=== PATIENT | female | born 1970 | race Caucasian/White ===

== ENCOUNTER → 2020-06-07 15:47 | Outpatient (BNVA) | payer OTHER, SELFPAY | PROVIDERS: PCP Internal Medicine; Visit Provider Advanced Practice Midwife ==

== ENCOUNTER → 2020-06-12 09:44 | Outpatient (BNVA) | payer OTHER, SELFPAY | PROVIDERS: PCP Internal Medicine; Visit Provider Advanced Practice Midwife | DX: Z13.89 Encounter for screening for other disorder (principal) | CPT/HCPCS: 58301 ==

== ENCOUNTER 2020-08-17 13:22 | Outpatient (REF) | payer OTHER, SELFPAY ==
--- NOTE | ~2020-08-17 | XR_ITS ---
EXAMINATION: XR KNEE, RIGHT CLINICAL INFORMATION: Pain right knee COMPARISON: None TECHNIQUE: Four views of the right knee. FINDINGS: There is mild narrowing medial knee joint compartment. Moderate suprapatellar effusion is present. Hoffa's fat pad appears normal. There is no fracture, dislocation, or destructive process. No erosive change or chondrocalcinosis. XR/XR knee RT 4V IMPRESSION: Moderate suprapatellar effusion. Mild narrowing medial knee joint compartment.
== END 2020-08-17 13:23 | disposition home or self-care (01) ==
LOC: HO.HMGCX 13:22
PROVIDERS: PCP Internal Medicine; Visit Provider Hospitalist
DX: M25.561 Pain in right knee (principal)
CPT/HCPCS: 73564

== ENCOUNTER 2021-10-06 15:09 | Emergency (ER) | payer OTHER, SELFPAY ==
[2021-10-06 15:16] VITALS: BP 173/80; PULSE 89; RESP 20; TEMP 36.8; O2SAT 97; BMI 43.4
--- NOTE | 2021-10-06 15:43 | ED_ITS ---
HPI - Dental/Oral General Chief complaint: Dental/Oral Stated complaint: tooth pain for 2 weeks Time Seen by Provider: 10/06/21 15:38 Source: patient Mode of arrival: ambulatory Limitations: no limitations History of Present Illness HPI Narrative: 51 y/o female with left lower dental pain for the last 1 week. She saw her dentist 3 days ago and started on oral antibiotics, she knows she has to get the tooth removed and a root canal. She reports no improvement in the pain and it may be worsening. She is taking 100 mg ibuprofen, Tylenol and previously prescribed amoxicillin with no improvement. She continues to smoke, although she is trying to come back because she notices not good for her. She denies any fever or chills. She is eating and drinking normally. She is here for something for the pain. MD Complaint: tooth pain Location: Tooth # (21) Onset (ago): week(s) (1) Duration: constant Severity: severe Severity scale (1-10): 10 Relieving factors: nothing Exacerbating factors: chewing Context: history of dental caries, trauma (mechanism) and poor dental care Associated symptoms: gum swelling Treatment prior to arrival: oral analgesic Related Data Home Medications Medication Instructions Recorded Confirmed flu vac qv 2019(18yr up)rc(PF) ml IM 06/02/20 08/17/20 levonorgestrel 20 mcg/24 hours (7 INTRAUTERINE 06/07/20 08/17/20 yrs) 52 mg intrauterine device (Mirena) Previous Rx's Medication Instructions Recorded naproxen 500 mg tablet 500 mg PO BID PRN #30 tab 02/09/20 fluoxetine 20 mg capsule 40 mg PO DAILY #180 cap 06/02/20 omeprazole 20 mg capsule,delayed 20 mg PO DAILY #90 cap 07/21/20 release prednisone 20 mg tablet 20 mg PO DAILY 9 Days #18 tab 08/18/20 clindamycin HCl 300 mg capsule 300 mg PO Q6H 7 Days #28 cap 10/06/21 tramadol 50 mg tablet 50 mg PO Q6H PRN #10 tab 10/06/21 Allergies Allergy/AdvReac Type Severity Reaction Status Date / Time No Known Allergies Allergy Verified 08/17/20 12:52 [No Known Allergies*] Review of Systems Review of Systems: Constitutional: No Fever, No Chills ENT/Mouth: No sore throat, No Rhinorrhea, No Swallowing Difficulty, +Toothpain, +facical pain Eyes: No Eye Pain, No Swelling, No Redness Cardiovascular: No Chest Pain, No SOB Respiratory: No Cough, No Sputum Gastrointestinal: No Nausea, No Vomiting, No Diarrhea, No abdominal Pain Skin: No Skin Lesions, No rash Neuro: No Weakness, No Numbness, No Dizziness, + Headache Psych: + Anxiety/Panic Heme/Lymph: No Bruising, No Lymphadenopathy PMFSH Past Medical History Medical History Annual physical exam Depression Overweight Surgical History No pertinent past surgical history Family History Family History Father No problems noted. Mother No problems noted. Paternal Grandmother Stomach cancer Social History Social History Alcohol intake: never Cigarette Packs Per Day: 0.5 Cigarettes Per Day: 10 Advance Directives: No Advance Directives Information Provided: No Sexual orientation: Straight/Heterosexual Physical Exam Vital Signs: Vital Signs: Last Vital Signs Temp 98.3 F 10/06/21 15:16 Pulse 89 10/06/21 15:16 Resp 20 10/06/21 15:16 BP 173/80 H 10/06/21 15:16 Pulse Ox 97 10/06/21 15:16 BMI result Body Mass Index 43.4 Appearance: Alert. Oriented X3. No acute distress. HEENT: mild left lower mandibular swelling. 2nd bicuspid severely decayed, enam el cracked, exposed dentin with gingival swelling and tenderness. multiple broken and decayed teeth. CVS: Normal heart rate and rhythm. Pulses normal. Respiratory: No respiratory distress. Speaks in complete sentences. Skin: Skin warm and dry. Normal skin color. Normal skin turgor. No rashes. Extremities: normal inspection x4. Neuro: Oriented X 3. No motor deficit. No sensory deficit. Course Course Course Narrative: 51-year-old female presents to the ER with left lower tooth pain for the last 1 week. She has been on a oral amoxicillin for the last 3 days per her dentist with worsening pain and swelling. On examination she has a broken, decayed tooth with evidence of dental abscess. No area of fluctuance amenable to drainage today. Will plan to up titrate her antibiotics to clindamycin for broader coverage and prescribed tramadol for severe pain. She is going to call her dentist on Friday for close follow-up. Advised to quit smoking. She is stable for discharge home. Critical Care Time Critical Care Time Critical Care Time: No Discharge Plan Discharge Clinical Impression: Dental abscess Patient Disposition: Home, Self-Care Instructions: Dental Abscess (ED) Additional Instructions: Stop taking the previously prescribed amoxicillin. Start taking the new antibiotic, clindamycin as directed. Complete the entire course. Recommend taking [id number] probiotics while your on this antibiotic. Continue taking at the previously prescribed ibuprofen and Tylenol. Take the prescribed tramadol as needed for severe pain. Do not drive after taking this medication, it can make you drowsy. Follow-up with your dentist as soon as possible. If you develop new or worsening symptoms call 911 or come back to the ER for further evaluation. Prescriptions: New clindamycin HCl 300 mg capsule 300 mg PO Q6H 7 Days Qty: 28 0RF tramadol 50 mg tablet 50 mg PO Q6H PRN (Reason: severe pain (scale score 7-10)) Qty: 10 0RF No Action omeprazole 20 mg capsule,delayed release(DR/EC) 20 mg PO DAILY Qty: 90 3RF prednisone 20 mg tablet 20 mg PO DAILY 9 Days Qty: 18 0RF Rx Instructions: 3 tabs/60mg for 3 days 2 tabs/40mg for 3 days 1 tab/20mg for 3 days naproxen 500 mg tablet 500 mg PO BID PRN (Reason: pain) Qty: 30 0RF Flublok Quad [id number] (PF) 180 mcg (45 mcg x 4)/0.5 mL syringe IM 0RF fluoxetine 20 mg capsule 40 mg PO DAILY Qty: 180 3RF Mirena 20 mcg/24 hours (6 yrs) 52 mg intrauterine device intrauterine 0RF
== END 2021-10-06 16:07 | disposition home or self-care (01) ==
PROVIDERS: Emergency Provider Student in an Organized Health Care Education/Training Program; PCP Internal Medicine
DX: K04.7 Periapical abscess without sinus (principal); K08.89 Other specified disorders of teeth and supporting structures; F17.210 Nicotine dependence, cigarettes, uncomplicated; Z71.6 Tobacco abuse counseling; Z79.899 Other long term (current) drug therapy
CPT/HCPCS: 99282

== ENCOUNTER 2023-04-26 09:42 | Outpatient (AMB) | payer OTHER, SELFPAY ==
--- NOTE | 2023-04-26 10:05 | AM.OFFWIN_ITS ---
Intake Vital Signs 04/26/23 10:06 Height 5 ft 1 in BP 150/92 H Blood Pressure Location Lt brachial Position Sitting Pulse 78 Pulse Source Pulse Oximeter Temp 97.5 F Temp Source Oral Pulse Oximetry (%) 98 Oxygen Delivery Method Room Air Intake Visit Reasons: EP Sore throat,cough(son+COVID)[id number] Intake Note: pt is here for c/o sore throat, son was covid positive Patient Tobacco Use Status: Never used Tobacco Allergies No Known Allergies [No Known Allergies*] Allergy (Verified 04/26/23 10:06) Medication List - Last Reconciled 04/26/23 by Germania Maxwell PA-C famotidine (Pepcid) 20 mg PO DAILY 5 days fluoxetine 40 mg (2 x 20 mg) PO DAILY hydroxyzine HCl 25mg-50mg orally 4 times a day PRN; levonorgestrel (Mirena) intrauterine omeprazole 20 mg PO DAILY Do you need a note to return to daycare/school/sports/work: Yes HPI HPI Comments History of Present Illness Details She has covid symptoms She said symptoms started 2 days ago Her son was + Smooth She teste at home + yesterday She has congestion, ST ashiness + cough with some phlegm Foamy sputum No fever She has been on omeprazole and ran out recently and looking for refill [facility] Medical History Depression Surgical History No pertinent past surgical history Family History Father No problems noted. Mother No problems noted. Paternal Grandmother Stomach cancer Social History Alcohol intake: never Patient Tobacco Use Status: Never used Tobacco Cigarette Packs Per Day: 0.5 Cigarettes Per Day: 10 Sexual orientation: Straight/Heterosexual Female Reproductive History Menstrual Age of Menarche: 15 Review of Systems Const Reports as per HPI, Reports body aches and Reports fatigue ENT Reports no additional complaints Card Denies chest pain, Denies rapid heart rate and Denies dyspnea Resp Reports cough and Denies dyspnea GI Denies abdominal pain and Reports heartburn (baseline; looking for refill) Endo Reports fatigue Physical Exam Vital Signs: Last Vital Signs Temp 97.5 F 04/26/23 10:06 Pulse 78 04/26/23 10:06 BP 150/92 H 04/26/23 10:06 Pulse Ox 98 04/26/23 10:06 Oxygen Delivery Method Room Air 04/26/23 10:06 General: Non-toxic, NAD. Speaking full sentences. Skin: Warm dry throughout Eye: EOMI HENT: Airway patent. Uvula midline. No pharyngeal erythema or edema. No [employer]CH[employer]IC. Bilateral canals clear. TM non-erythematous, non-bulging. No TM perforation or hemotympanum noted. Respiratory: CTA bilaterally. No wheezes, rales or rhonchi Cardiac: RRR. No murmur MSK: Full ROM extremities. Neurology: A/O No aphasia or facial droop. Gait without abnormality Psych: Good mood and affect Results AMB Rapid Strep AMB Rapid Strep Negative Last Edit by Phillip Pavon CMA on 04/26/23 10 :33 Assessment & Plan Assessment & Plan (1) COVID: Code(s): U07.1 - COVID-19 Plan Patient seen and evaluated. She had faint positive line at home BINAXNOW COVID obtained Will call pt with results as she wanted it confirmed Discussed isolate x 5 days, then mask wearing around others for 5 days Symptomatic management, fluids rest Omeprazole refil given ER if worse Patient gave verbal understanding and had no additional questions or concerns at time of discharge All questions answered Orders: Orders AMB Rapid Strep Screen Today Z13.9 - Encounter for screening, unspecified BinaxNOW Covid-19 Ag Today U07.1 - COVID-19 Coding Level of Care Code Est Pt Level 3 (28323) Diagnoses COVID U07.1
[2023-04-26 10:06] VITALS: BP 150/92; PULSE 78; TEMP 36.4; O2SAT 98
== END 2023-04-26 12:20 | disposition home or self-care (01) ==
PROVIDERS: PCP Internal Medicine; Visit Provider Physician Assistant
DX: U07.1 COVID-19 (principal)
CPT/HCPCS: 87880; 99051; 99213

== ENCOUNTER 2023-04-26 10:47 | Outpatient (REF) | payer OTHER, SELFPAY ==
[2023-04-26 11:22] LABS: Binax Internal Control QC Valid; Binax Now Covid-19 Ag Positive (Negative); Binax Performed by: HO.TORG
== END 2023-04-26 10:48 | disposition home or self-care (01) ==
LOC: HO.HMGCLDS 10:47
PROVIDERS: PCP Internal Medicine; Visit Provider Physician Assistant
DX: U07.1 COVID-19 (principal)
CPT/HCPCS: 87811

== ENCOUNTER 2024-10-19 15:16 | Emergency (ER) | payer OTHER, SELFPAY ==
--- NOTE | ~2024-10-19 | XR_ITS ---
CLINICAL HISTORY: vomiting, ? bowel obstruction 2 view abdomen Comparison: None provided Findings: Low lung volumes with mild atelectasis. Imaged mediastinum is unremarkable for technique. No free intraperitoneal air by radiographs. No small bowel dilatation of the imaged abdomen. Mild gaseous borderline distention of the hepatic flexure in the right upper quadrant. Featureless bowel measuring 3 cm in the right hemiabdomen favored to be in the large intestine (series 2). Moderate stool burden in the partially imaged abdomen. Mild osteoarthritis of the imaged hips. Degenerative changes include imaged spine (mild) , by frontal radiographs. Phleboliths noted in the pelvis. IMPRESSION: 1. Moderate stool burden. 2. No definite small bowel obstruction by radiographs. Consider CT, if clinically indicated. This document has been electronically signed by: Kris Ugalde MD on 10/19/2024 22:05:43
[2024-10-19 15:19] VITALS: BP 141/84; PULSE 79; RESP 18; TEMP 36.8; O2SAT 99; BMI 40.2
--- NOTE | 2024-10-19 15:23 | ED_ITS ---
HPI - General Adult General Chief complaint: Abdominal Pain Stated complaint: Vomiting/Nausea Time Seen by Provider: 10/19/24 18:12 Source: patient Mode of arrival: ambulatory Limitations: no limitations History of Present Illness ED Provider: Dr. Laurel Valenzuela HPI narrative: 54-year-old female with history of GERD presenting with nausea and vomiting ongoing for the last couple of days. Describes potential diarrhea but no hematochezia or melena. Vomiting has been nonstop to the point where she has been unable to tolerate anything by mouth in the last 24 hours. No reported fever. Denies chest pain or difficulty breathing. No known sick contacts or questionable food intake. Related Data Home Medications ?Medication ?Instructions ?Recorded ?Confirmed levonorgestrel 21 mcg/24 hr (up to intrauterine 06/07/20 04/26/23 8 years) 52 mg intrauterine device (Mirena) Previous Rx's ?Medication ?Instructions ?Recorded famotidine 20 mg tablet (Pepcid) 20 mg PO DAILY 5 days #5 tabs 10/18/21 fluoxetine 20 mg capsule 40 mg (2 x 20 mg) PO DAILY #180 10/18/21 caps hydroxyzine HCl 25 mg tablet See Rx Instructions PO QID PRN 10/18/21 itching #30 tabs omeprazole 20 mg capsule,delayed 20 mg PO DAILY #30 caps 04/30/23 release dicyclomine 20 mg tablet 20 mg PO BID #10 tabs 10/19/24 ondansetron 4 mg disintegrating 4 mg PO Q8H #10 tabs 10/19/24 tablet Allergies Allergy/AdvReac Type Severity Reaction Status Date / Time No Known Allergies Allergy Verified 10/19/24 15:25 [No Known Allergies*] Review of Systems 2 Review of Systems: Yes all other systems are reviewed and are negative [facility] Past Medical History Attestation statement: The following information was validated with the patient. [facility] Narrative: Anxiety, GERD Source: old records reviewed and nursing notes reviewed Medical History Depression Surgical History No pertinent past surgical history Family History Family History Father No problems noted. Mother No problems noted. Paternal Grandmother Stomach cancer Social History Social History Alcohol intake: never Patient Tobacco Use Status: Never used Tobacco Cigarette Packs Per Day: 0.5 Cigarettes Per Day: 10 Advance Directives: No Advance Directives Information Provided: No Do you have a plan to hurt others: No Plan Sexual orientation: Straight/Heterosexual Physical Exam ED Vital Signs: Vital Signs - 24 hr 10/19/24 15:19 10/19/24 18:18 10/19/24 21:06 Temperature 98.3 F 97.8 F 98.4 F Pulse Rate 79 82 77 Respiratory Rate 18 20 20 Blood Pressure 141/84 H 175/66 H 184/86 H Pulse Oximetry 99 98 97 Oxygen Delivery Method Room Air Room Air Room Air BMI result Body Mass Index 40.2 GENERAL: Ill-Appearing, appears uncomfortable. SKIN: Normal skin color for ethnicity, warm, dry, no rashes noted. HEENT: Normocephalic, atraumatic, no stridor, dry mucous membranes, dentition intact, EOMI, PERRLA. NECK: Soft, supple, full ROM, midline structures nontender, no step-offs, no deformities, no lymphadenopathy. CHEST: Heart regular tachycardia, no murmurs, symmetric chest rise and fall. PULMONARY: Clear to auscultation bilaterally, diminished at the bases, no labored breathing, no wheezes/rhales/rhonchi. ABDOMINAL: Soft, nondistended, diffusely tender to palpation without rebound or guarding, hyperactive bowel sounds in all quadrants. : Deferred. MUSCULOSKELETAL: Normal tone, full range of motion, no deformities, no peripheral edema. NEURO: Alert and oriented x3, CN II through XII intact, equal strength and sensation bilateral upper and lower extremities, no focal neurologic deficits. PSYCHIATRIC: Flat affect, fluid speech, good eye contact and appropriate demeanor. Course Course Course Narrative: RME, this is a rapid medical exam performed by Macho Quinn please refer to primary provider for complete H&P- 54-year-old female presents for evaluation of nausea and vomiting since last night. Her son is sick with similar symptoms. Plan for labs, viral testing. Patient medicated with Zofran 4 mg ODT Medications Administered Discontinued Medications Generic Name Dose Route Start Last Admin Trade Name Freq PRN Reason Stop Dose Admin Famotidine 20 mg 10/19/24 20:04 10/19/24 20:21 Famotidine/Pf 20 Mg/2 Ml Vial IVPUSH 10/19/24 20:05 20 mg ONCE ONE Administration Lactated Ringer's 1,000 mls @ 999 mls/hr 10/19/24 19:03 10/19/24 19:20 Lr IV 10/19/24 20:03 999 mls/hr .Q1H1M ONE Administration Metoclopramide HCl 10 mg 10/19/24 20:04 10/19/24 20:21 Metoclopramide Hcl 10 Mg/2 Ml Vial IVPUSH 10/19/24 20:05 10 mg ONCE ONE Administration Ondansetron HCl 4 mg 10/19/24 15:24 10/19/24 15:27 Ondansetron Odt 4 Mg Tab.Rapdis TRANSLINGU 10/19/24 15:25 4 mg ONCE ONE Administration Ondansetron HCl 4 mg 10/19/24 19:03 10/19/24 19:20 Ondansetron Hcl 4 Mg/2 Ml Vial IVPUSH 10/19/24 19:04 4 mg ONCE ONE Administration Prochlorperazine Edisylate 10 mg 10/19/24 21:04 10/19/24 21:09 Prochlorperazine Edisylate 10 Mg/2 Ml Vial IVPUSH 10/19/24 21:05 10 mg ONCE ONE Administration Medical Decision Making Medical Decision Making MDM Narrative: Patient presents today with a chief complaint of vomiting. Differential diagnosis includes surgical emergency such as obstruction or enteritis, as well as hyperglycemia, acidosis, food or drug ingestion, pancreatitis, CVA, allergic reaction such as anaphylaxis, cannabis hyperemesis syndrome or cyclic vomiting syndrome, among many others. Patient is not showing signs of acute dehydration or hemodynamic instability. They are having associated abdominal pain. Broad-based work-up was initiated based on above history and physical exam. Medicated with Zofran and fluids. 8:05 p.m. patient feeling slightly improved the nausea persists. We will add on Reglan. Her workup thus far has been reassuring. Given both vomiting and diarrhea today I suspect a viral gastroenteritis. She is nontoxic and tolerating oral intake. Anticipate discharge after the 2nd dose of antiemetics. Differential Diagnosis Differential Diagnoses: The differential diagnosis associated with the presentation includes ( See above) Admission/Observation Consideration of admission/observation: Escalation of care including admission/observation considered Lab Data MDM Lab Attestation statement: I reviewed the patient's lab results. 10/19/24 15:37 10/19/24 15:37 Labs: Lab Results 10/19/24 Range/Units 15:37 WBC 12.4 H (4.8-10.8) X10*3/uL RBC 5.13 (4.20-5.50) X10*6/uL Hgb 15.9 (12.0-16.0) g/dl Hct 44.6 (37.0-47.0) % MCV 86.9 (80.0-98.0) fL MCH 31.0 (27.0-33.0) pg MCHC 35.7 H (31.0-35.0) g/dl RDW 13.1 (11.0-16.0) % Plt Count 446 H (160-400) X10*3/uL MPV 8.8 L (9.4-12.3) fL Immature Gran % (Auto) 0.4 (0.0-0.4) % Neut % (Auto) 72.7 (45-73) % Lymph % (Auto) 20.1 (20-40) % Gladwin % (Auto) 5.2 (2-11) % Eos % (Auto) 1.0 (0-4) % Baso % (Auto) 0.6 (0-2) % Lymph # (Auto) 2.5 (1.2-4.9) X10*3/uL Gladwin # (Auto) 0.7 (0.1-1.2) X10*3/uL Eos # (Auto) 0.1 (0.0-0.4) X10*3/uL Baso # (Auto) 0.1 (0.0-0.2) X10*3/uL Abs Immat Gran (auto) 0.05 H (0.00-0.03) X10*3/uL Absolute Neuts (auto) 9.0 H (2.0-8.3) x10*3/uL Absolute Nucleated RBC 0.000 (0.0-0.012) X10*3/uL Nucleated RBC % (auto) 0.0 (0.0-0.2) /100WBC Sodium 142 (135-145) mmol/L Potassium 4.2 (3.3-5.1) mmol/L Chloride 106 (96-108) mmol/L Carbon Dioxide 25 (22-29) mmol/L Anion Gap 15 (12-20) BUN 8 L (9-16) mg/dL Creatinine 0.73 (0.5-1.4) mg/dL Estim Creat Clear Calc 99.5 Estimated GFR > 60 Random Glucose 134 H (60-115) mg/dL Calcium 10.0 (8.4-10.2) mg/dL Total Bilirubin 0.4 (0.0-1.0) mg/dL AST 25 (5-31) U/L ALT 25 (0-31) U/L Alkaline Phosphatase 97 (39-117) U/L Total Protein 7.8 (6.5-8.0) g/dL Albumin 4.5 (3.5-5.0) g/dL Lipase 18 (8-78) U/L Influenza Type A (PCR) NEGATIVE (Negative) Influenza Type B (PCR) NEGATIVE (Negative) RSV RNA Qual (PCR) NEGATIVE (Negative) SARS-CoV-2 RNA (RT-PCR) NEGATIVE (Negative) Radiology Impression Discussion of test interpretation with radiology: I have reviewed the radiologist's reading. Radiologist Impression: 2 view abdomen Comparison: None provided Findings: Low lung volumes with mild atelectasis. Imaged mediastinum is unremarkable for technique. No free intraperitoneal air by radiographs. No small bowel dilatation of the imaged abdomen. Mild gaseous borderline distention of the hepatic flexure in the right upper quadrant. Featureless bowel measuring 3 cm in the right hemiabdomen favored to be in the large intestine (series 2). Moderate stool burden in the partially imaged abdomen. Mild osteoarthritis of the imaged hips. Degenerative changes include imaged spine (mild) , by frontal radiographs. Phleboliths noted in the pelvis. IMPRESSION: 1. Moderate stool burden. 2. No definite small bowel obstruction by radiographs. Consider CT, if clinically indicated. This document has been electronically signed by: Kris Ugalde MD on 10/19/2024 22:05:43 Chronic Conditions Patient?s care impacted by: Other (GERD) Discharge Plan Discharge Clinical Impression: Viral gastroenteritis Patient Disposition: Home, Self-Care Instructions: Acute Nausea and Vomiting (DC) Prescriptions: New ondansetron 4 mg tablet,disintegrating 4 mg PO Q8H Qty: 10 0RF dicyclomine 20 mg tablet 20 mg PO BID Qty: 10 0RF No Action fluoxetine 20 mg capsule 40 mg PO DAILY Qty: 180 3RF omeprazole 20 mg capsule,delayed release(DR/EC) 20 mg PO DAILY Qty: 30 0RF hydroxyzine HCl 25 mg tablet See Rx Instructions PO QID PRN (Reason: itching) Qty: 30 0RF Rx Instructions: 25mg-50mg orally 4 times a day PRN; famotidine [Pepcid] 20 mg tablet 20 mg PO DAILY 5 Days Qty: 5 0RF Mirena 20 mcg/24 hours (6 yrs) 52 mg intrauterine device intrauterine Print Language: Indonesian
[2024-10-19] MEDS: Ondansetron ODT 4 MG TAB.RAPDIS TRANSLINGU (15:27)
[2024-10-19 15:42] LABS: MANUAL DIFF FLAG NO
[2024-10-19 15:43] LABS: Basophils Absolute Auto 0.1 X10*3/uL (0.0-0.2); Basophils Percent Auto 0.6 % (0-2); Eosinophils Absolute Auto 0.1 X10*3/uL (0.0-0.4); Hematocrit 44.6 % (37.0-47.0); Hemoglobin 15.9 g/dl (12.0-16.0); Imm Gran Abs Auto 0.05 X10*3/uL (0.00-0.03); Imm Gran Pct Auto 0.4 % (0.0-0.4); Lymphocytes Absolute Auto 2.5 X10*3/uL (1.2-4.9); Lymphocytes Percent Auto 20.1 % (20-40); Mean Corpuscular HGB Conc 35.7 g/dl (31.0-35.0); Mean Corpuscular Volume 86.9 fL (80.0-98.0); Mean Platelet Volume 8.8 fL (9.4-12.3); Monocytes Absolute Auto 0.7 X10*3/uL (0.1-1.2); Monocytes Percent Auto 5.2 % (2-11); Neutrophils Percent Auto 72.7 % (45-73); Platelet Count 446 X10*3/uL (160-400); Red Blood Count 5.13 X10*6/uL (4.20-5.50); Red Cell Distribution Width 13.1 % (11.0-16.0); White Blood Count 12.4 X10*3/uL (4.8-10.8)
[2024-10-19 15:58] LABS: Alanine Aminotransferase 25 U/L (0-31); Albumin Level 4.5 g/dL (3.5-5.0); Alkaline Phosphatase 97 U/L (39-117); Anion Gap 15 (12-20); Aspartate Amino Transferase 25 U/L (5-31); Bilirubin Total 0.4 mg/dL (0.0-1.0); Blood Urea Nitrogen 8 mg/dL (9-16); Carbon Dioxide 25 mmol/L (22-29); Chloride 106 mmol/L (96-108); Creatinine Clr Calc Pharmacy 99.5; Estimated Glomerular Filt Rate > 60; Glucose Random 134 mg/dL (60-115); Lipase 18 U/L (8-78); Potassium 4.2 mmol/L (3.3-5.1); Sodium 142 mmol/L (135-145); Total Protein 7.8 g/dL (6.5-8.0)
[2024-10-19 16:26] LABS: Influenza A PCR NEGATIVE (Negative); Influenza B PCR NEGATIVE (Negative); Resp Syncy Virus RNA Qual PCR NEGATIVE (Negative); SARS COV2 PCR INHOUSE NEGATIVE (Negative)
[2024-10-19 18:18] VITALS: BP 175/66; PULSE 82; RESP 20; TEMP 36.6; O2SAT 98
--- OUTSIDE RECORDS SUMMARY | 2024-10-19 18:50 | XMS_ITS | Clinical Summary ---
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 06/27/2022 Active Social History Tobacco Use Types Packs/Day Years Used Date Smoking Tobacco: Every Day Cigarettes 0.3 0.5 Passive Smoke Exposure: Never Smokeless Tobacco: Never Tobacco Cessation:Ready to Q uit: Not Asked; Counseling Given: Not Answered Alcohol Use Standard Drinks/Week Comments Never 0 (1 standard drink = 0.6 oz pur e alcohol) Comments Unknown Sex and Gender Information Value Date Recorded Sex Assigned at Female 03/04/2022 10:26 AM EDT Legal Sex Female 10:26 AM EDT Gender Identity Female 03/04/2022 10:26 AM EDT Sexual Orientation Straight 03/04/2022 10 :26 AM EDT Last Filed Vital Signs Vital Sign Reading Time Taken Comments Blood Pressure 148/86 09/19/2022 9:49 AM EDT Pulse 92 09/19/2022 9:49 AM EDT Temperature - - Respiratory Rate - - Oxygen Saturation - - Inhaled Oxygen Concentration - - Weight - - Height - - Body Mass Index - - Plan of Treatment Health Maintenance Due Date Last Done Comments CT Colonography 1972 Colonoscopy 1972 Colorectal Cancer Screening 1972 Depression Screening 1972 FIT DNA/Cologuard 1972 FIT 1972 FOBT 1972 HIV Screening 1972 SDOH Screening 1972 Sigmoidoscopy 1972 Disability Screening 1972 Alcohol/Substance Use Screening 1984 Family Planning (PISQ) 1987 Hepatitis C Screening 1990 Hepatitis B Vaccines (1 of 3 - 19+ 3-dose series) 1991 Pneumococcal Vaccine: 50+ Years (1 of 2 - PCV) 1991 Pap Smear 1993 Cervical Cancer Screening 2002 HPV/Cotest 2002 Mammogram 2012 DTaP/Tdap/Td Vaccines (1 - Tdap) 07/13/2017 07/12/2017 Zoster Vaccines (1 of 2) 2022 Dental Oral Exam 12/18/2022 06/19/2022 Dental Prophylaxis 01/26/2023 07/25/2022 Dental X-Ray: Bitewings 06/20/2023 06/19/2022 Tobacco Screening 09/20/2023 09/19/2022 COVID-19 Vaccine (4 - 2023-2 5 season) 2024 05/25/2021, 09/27/2020, 08/30/2020 Influenza Vaccine (Season Ended) 2025 02/02/2020, 02/13/2018, 02/05/2017 Dental X-Ray: Full Mouth 06/20/2025 06/19/2022 RSV Patients and Patients Aged 60 years or older (1 - 1-dose 75+ series) 2047 HIB Vaccines Aged Out No longer eligi ble based on patient's age to complete this topic HPV Vaccines Aged Out No longer eligi ble based on patient's age to complete this topic Hepatitis A Vaccines Aged Out No long er eligible based on patient's age to complete this topic IPV Vaccines Aged Out No longer eligi ble based on patient's age to complete this topic Meningococcal B Vaccine Aged Out No l onger eligible based on patient's age to complete this topic Meningococcal Vaccine Aged Out No zee steve eligible based on patient's age to complete this topic RSV under 20 months Aged Out No longe r eligible based on patient's age to complete this topic Rotavirus Vaccines Aged Out No longer eligible based on patient's age to complete this topic Procedures Procedure Name Priority Date/Time Associated Diagnosis Comments PROPHYLAXIS - ADULT Routine 07/25/2022 1 1:00 AM EDT Dental calculus INTRAORAL - COMPLETE SERIES OF RADIOGRAPHIC IMAGES Routine 06/19/2022 10:30 AM EST PERIODIC ORAL EVALUATION - ESTABLISHED PATIENT Routine 06/19/2022 10:30 AM EST from Last 3 Months or Most Recently Relevant to Health Maintenance Insurance [facility] MEDICAID STAND ADULT
[2024-10-19] MEDS: Lactated Ringers 1,000 ML 999 ML IV (19:20)
[2024-10-19] MEDS: ondansetron HCL 4 MG/2 ML VIAL IVPUSH (19:20)
--- NOTE | 2024-10-19 19:31 | PC.NURSE ---
this rn assumed care of pt, pt resting in stretcher, reports nausea at this time. 22g placed in left hand, medicated per mar, iv fluids administering
[2024-10-19] MEDS: Famotidine/PF 20 MG/2 ML VIAL IVPUSH (20:21)
[2024-10-19] MEDS: Metoclopramide HCl 10 MG/2 ML VIAL IVPUSH (20:21)
[2024-10-19 21:06] VITALS: BP 184/86; PULSE 77; RESP 20; TEMP 36.9; O2SAT 97
[2024-10-19] MEDS: Prochlorperazine Edisylate 10 MG/2 ML VIAL IVPUSH (21:09)
[2024-10-19 22:36] VITALS: BP 165/71; PULSE 70; RESP 16; TEMP 36.9; O2SAT 98
[2024-10-19 22:39] VITALS: BP 165/71; PULSE 70; RESP 16; TEMP 36.9; O2SAT 98
== END 2024-10-19 22:40 | disposition home or self-care (01) ==
PROVIDERS: Physician Assistant; Emergency Provider Emergency Medicine
DX: A08.4 Viral intestinal infection, unspecified (principal); R11.2 Nausea with vomiting, unspecified; Z79.899 Other long term (current) drug therapy; Z03.818 Encounter for observation for suspected exposure to other biological agents ruled out
CPT/HCPCS: 0241U; 74022; 80053; 83690; 85025; 96361; 96374; 96375; 99284; J0737; J1308; J2405; J2765; J7120

== ENCOUNTER → 2024-10-19 21:04 | Outpatient (BNV) | payer OTHER, SELFPAY | PROVIDERS: Emergency Provider Emergency Medicine; Visit Provider Radiology Neuroradiology | DX: R14.0 Abdominal distension (gaseous) (principal) | CPT/HCPCS: 74022 ==

== ENCOUNTER 2025-02-23 07:51 | Emergency (ER) | payer OTHER, SELFPAY ==
[2025-02-23 07:56] VITALS: BP 186/100; BP 202/104; PULSE 75; PULSE 79; RESP 20; TEMP 37.1; O2SAT 100; O2SAT 99; BMI 36.3
--- NOTE | 2025-02-23 08:41 | ED_ITS ---
HPI - General Adult General Chief complaint: Abdominal Pain Stated complaint: ABD PAIN FOR WEEKS,BP 220/108 Time Seen by Provider: 02/23/25 08:41 Source: patient Mode of arrival: ambulatory Limitations: no limitations History of Present Illness ED Provider: Leatha Murray PA-C HPI narrative: This is a 54yo female who presents to the ED for abdominal pain with associated nausea and diarrhea. Patient has a history of GERD, depression, and marijuana use. She states that this episode started last week and dissipated some over the weekend such that she was able to resume activities, however, the pain has started back up again prompting this visit. The patient indicates the pain is epigastric and states the nausea is severe, but she has not vomited as there is nothing left in my stomach . Endorses having about 20oz of non-carbonated nicki adri for hydration recently. She reports that she has been evaluated for these episodes in the ED multiple times at various points over the last few years with no definitive diagnosis. Received medication on previous visits that did help. She has not identified any associated triggers or confounding circumstances. Does not think this is food related and denies sick contacts. Endorses regular cannabis consumption via vaping/smoking, states that the cannabis does help with nausea. Denies pain in the chest, arms, or jaw. Denies shortness of breath, but endorses cough. Onset (ago): day(s) Location: abdomen Pain Consistency: constant Associated symptoms: nausea/vomiting and other (diarrhea) Related Data Home Medications ?Medication ?Instructions ?Recorded ?Confirmed levonorgestrel (Mirena) intrauterine 06/07/20 Previous Rx's ?Medication ?Instructions ?Recorded famotidine 20 mg tablet (Pepcid) 20 mg PO DAILY 5 days #5 tabs 10/18/21 fluoxetine 20 mg capsule 40 mg (2 x 20 mg) PO DAILY # 180 10/18/21 caps hydroxyzine HCl 25 mg tablet See Rx Instructions PO QI D PRN 10/18/21 itching #30 tabs omeprazole 20 mg capsule,delayed 20 mg PO DAILY #30 ca ps 04/30/23 release dicyclomine 20 mg tablet 20 mg PO BID #10 tabs ondansetron 4 mg disintegrating 4 mg PO Q8H #10 tabs 0 10/19/24 tablet omeprazole 40 mg capsule,delayed 40 mg PO DAILY #7 cap s 02/23/25 release ondansetron 4 mg disintegrating 4 mg PO Q8H 3 days #9 tabs 02/23/25 tablet Allergies Allergy/AdvReac Type Severity Reaction Status Date / Time No Known Allergies (No Known Allergy Verified 02/23/25 08:01 Allergies*) Review of Systems 2 Constitutional: Constitutional: Reports as per HPI Eyes: Eyes: Reports as per HPI ENT: Reports as per HPI Cardiovascular: Cardiovascular: Reports as per HPI Respiratory: Respiratory: Reports as per HPI Gastrointestinal: Gastrointestinal: Reports as per HPI Genitourinary: Genitourinary: Reports as per HPI Musculoskeletal: Musculoskeletal: Reports as per HPI Integumentary/Breasts: Skin/Breast: Reports as per HPI Neurologic: Reports as per HPI Psychiatric: Psychiatric: Reports as per HPI Endocrine: Endocrine: Reports as per HPI Hematologic/Lymphatic: Hematologic/Lymphatic: Reports as per HPI Allergic/Immunologic: Allergic/Immunologic: Reports as per HPI [facility] Past Medical History Attestation statement: The following information was validated with the patient. Source: old records reviewed and nursing notes reviewed Medical History Overweight Annual physical exam Depression Surgical History No pertinent past surgical history Family History Family History Father No problems noted. Mother No problems noted. Paternal Grandmother Stomach cancer Social History Social History Alcohol intake: never Patient Tobacco Use Status: Never used Tobacco Cigarette Packs Per Day: 0.5 Cigarettes Per Day: 10 Advance Directives: No Advance Directives Information Provided: No Sexual orientation: Straight/Heterosexual Physical Exam ED Vital Signs: Vital Signs - 24 hr 02/23/25 07:56 02/23/25 09:32 Temperature 98.7 F Pulse Rate 79 Respiratory Rate 20 16 Blood Pressure 202/104 H Pulse Oximetry 100 Oxygen Delivery Method Room Air BMI result Body Mass Index 36.3 Const General: cooperative, alert and awake Nutritional Appearance: obese Orientation/consciousness: patient oriented x3 HENMT Head: Yes normocephalic and Yes atraumatic Ears: hearing grossly normal bilaterally and external ears normal General nose exam: Normal external nose present, no nasal discharge noted and no epistaxis Face and sinus: Yes normal facial exam, No abrasion and No laceration Mouth: Normal oral and palatal mucosa present, no drooling and no muffled voice Eyes General: appearance normal, both eyes and all related structures Periorbital: periorbital findings normal Eyelids: Yes eyelids normal Conjunctivae: conjunctivae normal Pupils: Equal, round and reactive pupils present EOM: EOMs intact bilaterally Neck Neck: Yes normal visual inspection and Yes full ROM Resp Effort & Inspection: normal respiratory effort and able to speak in complete sentences GI Palpation (GI): Soft to palpation, not firm, nontender, no guarding and not rigid Neuro General: patient oriented x3 Cranial nerves: Yes Equal, round and reactive pupils present Cognition (Neuro): normal cognition Extrem General: Yes normal to inspection, Yes full ROM and Yes capillary refill normal Psych Appearance: grossly normal Mental Status: mental status grossly normal Affect: normal affect Attitude: cooperative Thought process: Normal thought process present Thought content: Normal thought content present Insight: Good insight present (Psych) Medications Administered Discontinued Medications Generic Name Dose Route Start Last Admin Trade Name Valentínq PRN Reason Stop Dose Admin Morphine Sulfate 4 mg 02/23/25 08:42 02/23/25 09:32 Morphine Sulfate 4 Mg/Ml Cartridge IVPUSH 02/23/25 08:43 4 mg ONCE ONE Administration Protocol Ondansetron HCl 4 mg 02/23/25 08:42 02/23/25 09:32 Ondansetron Hcl 4 Mg/2 Ml Vial IVPUSH 02/23/25 08:43 4 mg ONCE ONE Administration Pantoprazole Sodium 40 mg 02/23/25 08:42 02/23/25 09:32 Pantoprazole Sodium 40 Mg/10 Ml Vial IVPUSH 02/23/25 08:43 40 mg ONCE ONE Administration Medical Decision Making Medical Decision Making MDM Narrative: Patient is a 54 year old assigned female at with a history of GERD and marijuana use presenting to the emergency department today with abdominal pain, nausea, and diarrhea. Patient's physical exam was as noted in the physical exam portion of this note and unremarkable. Patient's blood work was unremarkable. Patient's EKG was unremarkable. Patient's clinical presentation is most consistent with gastroenteritis vs. gastritis vs. CHS I explained my physical exam findings as well as all test results to the patient. I answered all questions asked by the patient. Patient received IV fluids, morphine, protonix, and zofran which, upon re- evaluation, she stated it helped her symptoms significantly. I stressed the importance of the patient taking her medication as directed (either prescribed or as the over the counter packaging recommends). I stressed the importance of the patient following up with her primary care provider and a GI specialist. I stressed the importance of the patient returning to the emergency department immediately if her symptoms were to worsen or if she were to develop any dizziness, shortness of breath, difficulty breathing, chest pain, blurry vision, loss of vision, nausea, vomiting, abdominal pain, fever, chills, back pain, or any other complaints. Patient verbalized agreement and understanding with this treatment plan and discharge. Differential Diagnosis Differential Diagnoses: The differential diagnosis associated with the presentation includes Abdominal pain Gastroenteritis Epigastric pain CHS Gastritis Peptic ulcer disease Admission/Observation Consideration of admission/observation: Escalation of care including admission/observation considered Patient would have been admitted to the hospital had her work up had any findings where hospital admission was appropriate and her clinical presentation warranted hospital admission. Lab Data [facility] Lab Attestation statement: I reviewed the patient's lab results. My interpretation of these results are in the [facility] Rationale portion of this note. 02/23/25 09:25 02/23/25 09:25 Labs: Lab Results 02/23/25 Range/Units 09:25 WBC 9.9 (4.8-10.8) X10*3/uL RBC 4.83 (4.20-5.50) X10*6/uL Hgb 14.8 (12.0-16.0) g/dl Hct 41.6 (37.0-47.0) % MCV 86.1 (80.0-98.0) fL MCH 30.6 (27.0-33.0) pg MCHC 35.6 H (31.0-35.0) g/dl RDW 12.5 (11.0-16.0) % Plt Count 396 (160-400) X10*3/uL MPV 8.9 L (9.4-12.3) fL Immature Gran % (Auto) 0.3 (0.0-0.4) % Neut % (Auto) 76.1 H (45-73) % Lymph % (Auto) 17.5 L (20-40) % [place] % (Auto) 4.9 (2-11) % Eos % (Auto) 0.5 (0-4) % Baso % (Auto) 0.7 (0-2) % Lymph # (Auto) 1.7 (1.2-4.9) X10*3/uL [place] # (Auto) 0.5 (0.1-1.2) X10*3/uL Eos # (Auto) 0.1 (0.0-0.4) X10*3/uL Baso # (Auto) 0.1 (0.0-0.2) X10*3/uL Abs Immat Gran (auto) 0.03 (0.00-0.03) X10*3/uL Absolute Neuts (auto) 7.5 (2.0-8.3) x10*3/uL Absolute Nucleated RBC 0.000 (0.0-0.012) X10*3/uL Nucleated RBC % (auto) 0.0 (0.0-0.2) /100WBC Sodium 136 (135-145) mmol/L Potassium 3.4 (3.3-5.1) mmol/L Chloride 104 (96-108) mmol/L Carbon Dioxide 24 (22-29) mmol/L Anion Gap 11 L (12-20) BUN 5 L (9-16) mg/dL Creatinine 0.60 (0.5-1.4) mg/dL Estim Creat Clear Calc 132.3 Estimated GFR > 60 Random Glucose 135 H (60-115) mg/dL Calcium 9.4 (8.4-10.2) mg/dL Total Bilirubin 0.4 (0.0-1.0) mg/dL AST 24 (5-31) U/L ALT 23 (0-31) U/L Alkaline Phosphatase 96 (39-117) U/L Troponin I High Sens < 2.7 (<3.5-17.0) ng/L Total Protein 7.3 (6.5-8.0) g/dL Albumin 4.2 (3.5-5.0) g/dL Lipase 11 (8-78) U/L Independent Interpretation I performed an independent interpretation of an: EKG Interpretation: I independently interpreted this EKG and am in agreement with the below findings: Vent. Rate: 74 BPM Atrial Rate: 74 BPM P-R Int: 154 ms QRS Dur: 88 ms QT Int: 394 ms P-R-T Axes: 32 2 28 degrees QTcB Int: 437 ms Normal sinus rhythm Minimal voltage criteria for LVH, may be normal variant (R in aVL) When compared with ECG of 24-Feb-2018 14:33, No significant change was found DD/ 0852 Tests considered The following testing was considered but not selected: I considered obtaining a CT scan of the abdomen/pelvis however, the patient's current clinical presentation and work up did not warrant this. Critical Care Time Critical Care Time Critical Care Time: Yes Total Critical Care Time: 34 Attestation: I spent 52 minutes of Critical Care Time with this patient. This does not include time spent on separately reported billable procedures. Discharge Plan Discharge Clinical Impression: Abdominal pain Patient Disposition: Home, Self-Care Instructions: Abdominal Pain (ED) Additional Instructions: Your work up today was reassuring there is no EMERGENT cause for your symptoms. Given your ongoing issues with this - you should follow up with the [facility] GI team. Take your medication as prescribed and please try to abstain from marijuana use as that can sometimes be the cause of these symptoms. Without being abstinent from it for 90 days, there is no way to definitively rule that out. IF you are prescribed home medications and/or you are taking over the counter medications at home - it is very important you continue to do so as prescribed / directed unless told otherwise. Follow up with a primary care provider. Return to the emergency department immediately if your symptoms worsen or if you develop any numbness, tingling, dizziness, shortness of breath, difficulty breathing, chest pain, blurry vision, loss of vision, nausea, vomiting, abdominal pain, fever, chills, back pain, or any other complaints. L If you do not have a primary care provider - call any of the below numbers to establish and follow up with a primary care provider. [facility] Primary Care ([place]) [phone] [place] [address], [address] [facility] Primary Care ([address] [place]) [phone] [place] [address], [address] [facility], [address] [facility] Primary Care ([address] [place]) [phone] [place] [address], [address] [facility], [address] [facility] Primary Care ([place] Zimm[place]) [phone] [place] [address], [address] [place], [address] [facility] Family Medicine [phone] [place] [address], [id number] Please see the information below about our Patient Portal. If you are not yet enrolled in the [facility] Patient Portal, you will receive an enrollment email invitation following your visit to any [facility] setting. You may also self-enroll in the Patient Portal by visiting our website: [email or web address] The following information is required to access the Patient Portal: - Your [facility] Medical Record Number - Your personal home email address (must match what is in your electronic medical record, Registration staff can assist with this) - Name - Date of Capabilities of the Patient Portal: - Message some providers - View upcoming appointments - Access your health summary, medical history, and visit history - View current conditions and allergies - View procedure and lab results - View your medications, including guidelines, side effects, and precautions - Complete pre-appointment questionnaires requested by your provider - Ready summary reports of your office visits and procedures To access the Patient Portal Mobile [employer], follow these directions: - Search [employer] in the [employer] Store or [employer] Store - Download the [employer] - Search for [facility] - Enter your login/password Prescriptions: New ondansetron 4 mg tablet,disintegrating 4 mg PO Q8H 3 Days Qty: 9 0RF omeprazole 40 mg capsule,delayed release(DR/EC) 40 mg PO DAILY Qty: 7 0RF No Action fluoxetine 20 mg capsule 40 mg PO DAILY Qty: 180 3RF omeprazole 20 mg capsule,delayed release(DR/EC) 20 mg PO DAILY Qty: 30 0RF ondansetron 4 mg tablet,disintegrating 4 mg PO Q8H Qty: 10 0RF dicyclomine 20 mg tablet 20 mg PO BID Qty: 10 0RF hydroxyzine HCl 25 mg tablet See Rx Instructions PO QID PRN (Reason: itching) Qty: 30 0RF Rx Instructions: 25mg-50mg orally 4 times a day PRN; famotidine [Pepcid] 20 mg tablet 20 mg PO DAILY 5 Days Qty: 5 0RF Mirena 20 mcg/24 hours (6 yrs) 52 mg intrauterine device intrauterine Referrals: [facility] Gastroenterology Services [Provider Group, Gastroenterology] Referral Note: Call to establish and follow up with the GI team. Stand Alone Forms: Work/School Release Interventions: ED Discharge Assessment Last Done: 02/23/25 10:51 Print Language: Tongan
--- NOTE | 2025-02-23 08:42 | ECG_ITS ---
Test Reason : rodrisa Blood Pressure : */* mmHG Vent. Rate : 74 BPM Atrial Rate : 74 BPM P-R Int : 154 ms QRS Dur : 88 ms QT Int : 394 ms P-R-T Axes : 32 2 28 degrees QTcB Int : 437 ms Normal sinus rhythm Minimal voltage criteria for LVH, may be normal variant ( R in aVL ) Borderline ECG When compared with ECG of 24-Feb-2018 14:33, No significant change was found Referred By: Leatha Murray Electronically Signed By: JENNA MAURER MD
[2025-02-23 09:28] LABS: MANUAL DIFF FLAG NO
[2025-02-23 09:32] VITALS: RESP 16
[2025-02-23 09:34] LABS: Hematocrit 41.6 % (37.0-47.0); Hemoglobin 14.8 g/dl (12.0-16.0); Imm Gran Abs Auto 0.03 X10*3/uL (0.00-0.03); Imm Gran Pct Auto 0.3 % (0.0-0.4); Lymphocytes Absolute Auto 1.7 X10*3/uL (1.2-4.9); Mean Corpuscular HGB Conc 35.6 g/dl (31.0-35.0); Mean Corpuscular Hemoglobin 30.6 pg (27.0-33.0); Mean Corpuscular Volume 86.1 fL (80.0-98.0); NRBC Abs Auto 0.000 X10*3/uL (0.0-0.012); NRBC Pct Auto 0.0 /100WBC (0.0-0.2); Platelet Count 396 X10*3/uL (160-400); Red Blood Count 4.83 X10*6/uL (4.20-5.50); White Blood Count 9.9 X10*3/uL (4.8-10.8)
[2025-02-23 09:44] LABS: Alanine Aminotransferase 23 U/L (0-31); Albumin Level 4.2 g/dL (3.5-5.0); Alkaline Phosphatase 96 U/L (39-117); Anion Gap 11 (12-20); Aspartate Amino Transferase 24 U/L (5-31); Blood Urea Nitrogen 5 mg/dL (9-16); Calcium 9.4 mg/dL (8.4-10.2); Carbon Dioxide 24 mmol/L (22-29); Chloride 104 mmol/L (96-108); Creatinine Clr Calc Pharmacy 132.3; Estimated Glomerular Filt Rate > 60; Lipase 11 U/L (8-78); Potassium 3.4 mmol/L (3.3-5.1); Sodium 136 mmol/L (135-145); Total Protein 7.3 g/dL (6.5-8.0)
[2025-02-23 09:52] LABS: Troponin-I High Sensitivity < 2.7 ng/L (<3.5-17.0)
--- OUTSIDE RECORDS SUMMARY | 2025-02-23 09:59 | XMS_ITS | Clinical Summary ---
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
--- OUTSIDE RECORDS SUMMARY | 2025-02-23 09:59 | XMS_ITS | Encounter Summary ---
Author Organization [employer] Address [address] [facility] [address] [place] [address] Care Team Providers Care Applications Project Manager Name Role Phone Unavailable Primary Care Provider Unavailabl e Encounter Details Date Type Department Care Team (Latest Contact Info) Description 10/23/2018 Abstract [facility] CONVERSIONS Dental, Provider, DDS Social History Tobacco Use Types Packs/Day Years Used Date Smoking Tobacco: Never Assessed Comments Unknown Sex and Gender Information Value Date Recorded Sex Assigned at Female 03/04/2022 10:26 AM EDT Legal Sex Female 10:26 AM EDT Gender Identity Female 03/04/2022 10:26 AM EDT Sexual Orientation Straight 03/04/2022 10 :26 AM EDT documented as of this encounter Plan of Treatment Not on file documented as of this encounter Visit Diagnoses Not on filedocumented in this encounter
--- OUTSIDE RECORDS SUMMARY | 2025-02-23 09:59 | XMS_ITS ---
Author Name [facility] Organization Unknown Care Team Organization Name Specialty Phone Email Start Date End Da te [facility] Primary [facility] 03/12/202212/03
--- NOTE | 2025-02-23 10:03 | PC.NURSE ---
Pt roomed and placed on full monitor VSS Iv initiated and pt medicated- now resting with eyes closed.
[2025-02-23 10:51] VITALS: BP 174/106; BP 189/55; PULSE 80; RESP 22; TEMP 36.3; O2SAT 96
== END 2025-02-23 10:53 | disposition home or self-care (01) ==
PROVIDERS: Physician Assistant Medical; Emergency Provider Emergency Medicine
DX: R10.9 Unspecified abdominal pain (principal); R11.0 Nausea; R19.7 Diarrhea, unspecified; K21.9 Gastro-esophageal reflux disease without esophagitis
CPT/HCPCS: 36415; 80053; 83690; 84484; 85025; 93005; 96374; 96375; 99284; J2270; J2405; J2470

== ENCOUNTER → 2025-02-23 08:42 | Outpatient (BNV) | payer OTHER, SELFPAY | PROVIDERS: Emergency Provider Emergency Medicine; Visit Provider Internal Medicine Cardiovascular Disease | DX: R10.13 Epigastric pain (principal) | CPT/HCPCS: 93010 ==

== ENCOUNTER 2025-03-27 15:07 | Emergency (ER) | payer OTHER, SELFPAY ==
[2025-03-27 15:51] VITALS: BP 177/98; PULSE 90; RESP 18; TEMP 36.6; O2SAT 98
--- NOTE | 2025-03-27 15:52 | ED.GENADULT ---
HPI - General Adult General Chief complaint: General Medical Stated complaint: Dizziness Time Seen by Provider: 03/27/25 19:27 History of Present Illness ED Provider: Chaparro Henriquez MD HPI narrative: Date & Time: 2025-03-28 Patient Name: SCOTTY: N: Author / Clinician: Chaparro Henriquez MD (Emergency Medicine) Chief Complaint Intermittent epigastric/right upper quadrant abdominal pain with nausea and prior episodes of vomiting. History of Present Illness 54-year-old female presents with intermittent, fluctuating epigastric pain associated with nausea. She reports previous episodes over the past few years, including a six-month period of intractable nausea and an 8-lb weight loss. Current pain began several days ago, varies day-to-day, and is worsened by positional changes (lying on her left side, leaning forward). She feels very weak today. No vomiting today and has not eaten anything today. Spicy foods appear to trigger episodes. She has visited the emergency department 3?4 times this year for similar symptoms but has not seen a primary care doctor or sought regular outpatient care. No known chronic medical conditions and no prior surgeries. She occasionally drinks one glass of wine about once per week. Uses acetaminophen for symptom relief. Review of Systems Positive: abdominal pain (epigastric/RUQ), nausea, weakness. Negative: vomiting today. All other systems not discussed during this encounter. Physical Examination Vital Signs: Physical Exam: - Tenderness in the epigastrium and right upper quadrant; patient appears uncomfortable. - Pain increases with movement/positioning (lying on left side, leaning forward). Emergency Department Course - Labs: mild lipase elevation. - Bedside ultrasound demonstrated stones and sludge in the gallbladder, likely source of symptoms. - Medications administered: morphine for pain control. - Blood pressure noted to be elevated, believed to be pain-related; essential hypertension considered. - Shared decision-making with patient regarding need for surgery. No signs of acute cholecystitis, sepsis, or toxicity. Assessment & Plan Diagnosis: 1. Cholelithiasis with gallbladder sludge causing biliary colic. 2. Abdominal pain with mild lipase elevation, pancreatitis less likely. 3. Elevated blood pressure ? likely pain-related; rule out essential hypertension. Plan: - Pain control: morphine given in ED. - Surgical referral: patient instructed to call general surgery office first thing tomorrow to discuss follow-up and plan for gallbladder removal. - Advised to obtain a primary care provider for ongoing medical care. - Return precautions: return to ED for severe worsening pain, high fevers, jaundice, or inability to tolerate liquids/solids. Disposition Discharged home with instructions to call the general surgery office for follow-up regarding gallbladder removal. Related Data Home Medications ?Medication ?Instructions ?Recorded ?Confirmed levonorgestrel (Mirena) intrauterine 06/07/20 04/26/23 Previous Rx's ?Medication ?Instructions ?Recorded famotidine 20 mg tablet (Pepcid) 20 mg PO DAILY 5 days #5 tabs 10/18/21 fluoxetine 20 mg capsule 40 mg (2 x 20 mg) PO DAILY #180 10/18/21 caps hydroxyzine HCl 25 mg tablet See Rx Instructions PO QID PRN 10/18/21 itching #30 tabs omeprazole 20 mg capsule,delayed 20 mg PO DAILY #30 caps 04/30/23 release dicyclomine 20 mg tablet 20 mg PO BID #10 tabs 10/19/24 ondansetron 4 mg disintegrating 4 mg PO Q8H #10 tabs 10/19/24 tablet omeprazole 40 mg capsule,delayed 40 mg PO DAILY #7 caps 02/23/25 release ondansetron 4 mg disintegrating 4 mg PO Q8H 3 days #9 tabs 02/23/25 tablet morphine 15 mg immediate release 15 mg PO BID PRN pain #7 tabs 03/27/25 tablet ondansetron 4 mg disintegrating 4 mg PO Q8H PRN nausea and 03/27/25 tablet vomiting #7 tabs Allergies Allergy/AdvReac Type Severity Reaction Status Date / Time No Known Allergies (No Known Allergy Verified 03/27/25 15:51 Allergies*) FORMERLY [facility], [facility] Past Medical History Medical History Overweight Annual physical exam Depression Surgical History No pertinent past surgical history Family History Family History Father No problems noted. Mother No problems noted. Paternal Grandmother Stomach cancer Social History Social History Alcohol intake: never Patient Tobacco Use Status: Never used Tobacco Cigarette Packs Per Day: 0.5 Cigarettes Per Day: 10 Substance Use Type: Marijuana Sexual orientation: Straight/Heterosexual Physical Exam ED Vital Signs: Vital Signs - 24 hr 03/27/25 15:51 03/27/25 20:02 03/27/25 21:20 Temperature 97.9 F 97.6 F Pulse Rate 90 82 77 Respiratory Rate 18 18 18 Blood Pressure 177/98 H 204/103 H 186/113 H Pulse Oximetry 98 98 Oxygen Delivery Method Room Air Room Air 03/27/25 23:18 Temperature 97.8 F Pulse Rate 81 Respiratory Rate 16 Blood Pressure 168/82 H Pulse Oximetry 97 Oxygen Delivery Method Room Air BMI result Body Mass Index 30.0 Course Course Course Narrative: Rapid medical examination performed in triage by Leatha Murray PA-C: Patient is a 54 year old assigned female at presenting to the emergency department with nausea, vomiting, and abdominal pain. Detailed physical exam and review of systems are deferred to the sales and marketing director. EKG and labs ordered. Patient placed back in the waiting room pending room availability and results. Medications Administered Discontinued Medications Generic Name Dose Route Start Last Admin Trade Name Freq PRN Reason Stop Dose Admin Sodium Chloride 1,000 mls @ 999 mls/hr 03/27/25 21:30 03/27/25 23:02 Ns IV 03/27/25 22:30 Infused .Q1H1M LOVELY Infusion Morphine Sulfate 4 mg 03/27/25 21:29 03/27/25 21:43 Morphine Sulfate 4 Mg/Ml Cartridge IVPUSH 03/27/25 21:30 4 mg ONCE ONE Administration Protocol Ondansetron HCl 4 mg 03/27/25 21:17 03/27/25 21:36 Ondansetron Hcl 4 Mg/2 Ml Vial IVPUSH 03/27/25 21:18 4 mg ONCE ONE Administration Pantoprazole Sodium 40 mg 03/27/25 21:17 03/27/25 21:37 Pantoprazole Sodium 40 Mg/10 Ml Vial IVPUSH 03/27/25 21:18 40 mg ONCE ONE Administration Procedures Procedure Narrative Procedure Narrative: EMERGENCY ULTRASOUND INTERPRETATION- Limited Point of Care Biliary [This study was ordered, performed, and interpreted by myself. The study reveals: Impression: Gallbladder sludge. Focal fatty sparing favored over focal anterior gallbladder wall thickening [Indication: RUQ PAIN Gallbladder: Sludge, not hydropic. No shadowing stones. Suggestion of focal areas of hypoechoic liver tissue nearby favored over the pericholecystic fluid suggestive of focal fatty sparing. Anterior gallbladder wall less than 3 mm CBD MEASURMENT IF OBTAINED: Less than 3 mm Performed by: Chpaarro Henriquez MD Images were stored CPT:86293] Medical Decision Making Medical Decision Making MDM Narrative: Medical Decision Makin-year-old female with nausea vomiting epigastric pain intermittent fluctuating she has had episodes like this in the past with intractable nausea and weight loss. She does not see a physician regularly she does no known diagnosed medical issues. She is tender in the right upper quadrant epigastrium she looks quite uncomfortable. She has sludge but no obvious pericholecystic fluid or gallbladder wall thickening. CBD is normal measurement. Looks more like she has focal fatty sparing see the ultrasound report. Mild lipase elevation with normal CBD he is of unclear etiology she is not a drinker. No obvious medications to cause this. She may transiently have sludge or stones obstructing CBD but not currently. We had a shared decision-making discussion about emergent consultation with General surgery for possible admission and cholecystectomy but she preferred the outpatient route which I think is reasonable as she does not have acute cholecystitis she has not ill or septic or toxic looking. Preliminary Favored Differential Diagnosis: PUD, gastritis, hepatitis, biliary colic, pancreatitis among additional considered etiologies Testing Interpreted Independently: ?See below for details Radiology or Lab testing Results Reviewed: ?See below for details Consults: ?See below for details Independent Historians/External Chart Reviews: ?See below for details Social Determinants of Health Impacting MDM/Planning: ?See below for details Lab Data MDM Lab Attestation statement: I reviewed the patient's lab results. 03/27/25 17:13 03/27/25 17:13 Labs: Lab Results 03/27/25 Range/Units 17:13 WBC 7.6 (4.8-10.8) X10*3/uL RBC 5.10 (4.20-5.50) X10*6/uL Hgb 15.6 (12.0-16.0) g/dl Hct 44.9 (37.0-47.0) % MCV 88.0 (80.0-98.0) fL MCH 30.6 (27.0-33.0) pg MCHC 34.7 (31.0-35.0) g/dl RDW 12.3 (11.0-16.0) % Plt Count 395 (160-400) X10*3/uL MPV 9.0 L (9.4-12.3) fL Immature Gran % (Auto) 0.3 (0.0-0.4) % Neut % (Auto) 64.8 (45-73) % Lymph % (Auto) 26.2 (20-40) % Cataño % (Auto) 5.8 (2-11) % Eos % (Auto) 2.0 (0-4) % Baso % (Auto) 0.9 (0-2) % Lymph # (Auto) 2.0 (1.2-4.9) X10*3/uL Cataño # (Auto) 0.4 (0.1-1.2) X10*3/uL Eos # (Auto) 0.2 (0.0-0.4) X10*3/uL Baso # (Auto) 0.1 (0.0-0.2) X10*3/uL Abs Immat Gran (auto) 0.02 (0.00-0.03) X10*3/uL Absolute Neuts (auto) 4.9 (2.0-8.3) x10*3/uL Absolute Nucleated RBC 0.000 (0.0-0.012) X10*3/uL Nucleated RBC % (auto) 0.0 (0.0-0.2) /100WBC Sodium 140 (135-145) mmol/L Potassium 3.6 (3.3-5.1) mmol/L Chloride 98 (96-108) mmol/L Carbon Dioxide 31 H (22-29) mmol/L Anion Gap 15 (12-20) BUN 6 L (9-16) mg/dL Creatinine 0.87 (0.5-1.4) mg/dL Estim Creat Clear Calc 77.1 Estimated GFR > 60 Random Glucose 125 H (60-115) mg/dL Calcium 9.7 (8.4-10.2) mg/dL Magnesium 2.2 (1.6-2.6) mg/dL Total Bilirubin 0.5 (0.0-1.0) mg/dL AST 32 H (5-31) U/L ALT 36 H (0-31) U/L Alkaline Phosphatase 94 (39-117) U/L Total Protein 7.5 (6.5-8.0) g/dL Albumin 4.4 (3.5-5.0) g/dL Lipase 85 H (8-78) U/L Discharge Plan Discharge Clinical Impression: Gallbladder sludge Patient Disposition: Home, Self-Care Instructions: Biliary Colic (ED), Laparoscopic Cholecystectomy (DC) Additional Instructions: DISCHARGE DIAGNOSES: Gallbladder sludge probably biliary colic causing abdominal pain. Elevated blood pressure in the emergency department likely secondary to pain could be underlying essential hypertension HISTORY OF PRESENTATION: ?Abdominal pain EMERGENCY DEPARTMENT COURSE,TESTS, TREATMENTS: While in the ED today ultrasound of the gallbladder showed sludge or sediment in the gallbladder likely causing your symptoms DISCHARGE MEDICATIONS: ?Nausea and pain medicine FOLLOW-UP: ?Call your primary or general physician soon as possible to discuss your symptoms, your ED visit and to discuss follow up plans Call the general surgery office 1st thing tomorrow morning to discuss follow up for gallbladder sludge and biliary colic INSTRUCTIONS ?& RETURN PRECAUTIONS: If any symptoms change first call your primary physician, if it is after-hours your primary doctors office should have a provider production cost estimator you can speak with. If the symptoms are severe or very concerning to you then call 911 or return to the ED. Return to the ED for severe worsening of your pain high fevers yellowing of the skin or eyes or inability to tolerate liquids or solids at home Chaparro Henriquez MD Emergency Physician [facility] Prescriptions: New morphine 15 mg tablet 15 mg PO BID PRN (Reason: pain) Qty: 7 0RF Rx Instructions: Partial Fill upon patient request. ondansetron 4 mg tablet,disintegrating 4 mg PO Q8H PRN (Reason: nausea and vomiting) Qty: 7 0RF No Action fluoxetine 20 mg capsule 40 mg PO DAILY Qty: 180 3RF omeprazole 20 mg capsule,delayed release(DR/EC) 20 mg PO DAILY Qty: 30 0RF ondansetron 4 mg tablet,disintegrating 4 mg PO Q8H Qty: 10 0RF dicyclomine 20 mg tablet 20 mg PO BID Qty: 10 0RF ondansetron 4 mg tablet,disintegrating 4 mg PO Q8H 3 Days Qty: 9 0RF omeprazole 40 mg capsule,delayed release(DR/EC) 40 mg PO DAILY Qty: 7 0RF hydroxyzine HCl 25 mg tablet See Rx Instructions PO QID PRN (Reason: itching) Qty: 30 0RF Rx Instructions: 25mg-50mg orally 4 times a day PRN; famotidine [Pepcid] 20 mg tablet 20 mg PO DAILY 5 Days Qty: 5 0RF Mirena 20 mcg/24 hours (6 yrs) 52 mg intrauterine device intrauterine Referrals: [facility] [place] [facility] Surgeons [Provider Group, General Surgery] Referral Note: Call with the office tomorrow. Notify them that you have gallbladder sludge and significant pain and we would like you to be seen within the week if possible to discuss cholecystectomy Interventions: ED Discharge Assessment Last Done: 03/27/25 23:18 Discharge Date/Time: 03/27/25 23:19 Print Language: Lao
[2025-03-27 17:20] LABS: MANUAL DIFF FLAG NO
[2025-03-27 17:29] LABS: Hematocrit 44.9 % (37.0-47.0); Hemoglobin 15.6 g/dl (12.0-16.0); Imm Gran Abs Auto 0.02 X10*3/uL (0.00-0.03); Imm Gran Pct Auto 0.3 % (0.0-0.4); Lymphocytes Absolute Auto 2.0 X10*3/uL (1.2-4.9); Mean Corpuscular HGB Conc 34.7 g/dl (31.0-35.0); Mean Corpuscular Hemoglobin 30.6 pg (27.0-33.0); Mean Corpuscular Volume 88.0 fL (80.0-98.0); NRBC Abs Auto 0.000 X10*3/uL (0.0-0.012); NRBC Pct Auto 0.0 /100WBC (0.0-0.2); Platelet Count 395 X10*3/uL (160-400); Red Blood Count 5.10 X10*6/uL (4.20-5.50); White Blood Count 7.6 X10*3/uL (4.8-10.8)
[2025-03-27 17:37] LABS: Alanine Aminotransferase 36 U/L (0-31); Albumin Level 4.4 g/dL (3.5-5.0); Alkaline Phosphatase 94 U/L (39-117); Anion Gap 15 (12-20); Aspartate Amino Transferase 32 U/L (5-31); Blood Urea Nitrogen 6 mg/dL (9-16); Calcium 9.7 mg/dL (8.4-10.2); Carbon Dioxide 31 mmol/L (22-29); Chloride 98 mmol/L (96-108); Creatinine Clr Calc Pharmacy 77.1; Estimated Glomerular Filt Rate > 60; Lipase 85 U/L (8-78); Magnesium 2.2 mg/dL (1.6-2.6); Potassium 3.6 mmol/L (3.3-5.1); Sodium 140 mmol/L (135-145); Total Protein 7.5 g/dL (6.5-8.0)
--- OUTSIDE RECORDS SUMMARY | 2025-03-27 19:57 | XMS_ITS | Encounter Summary ---
Author Organization [employer] Address [address] [place] [address] Care Team Providers Care Wide Area Network Administrator Name Role Phone Unavailable Primary Care Provider Unavailabl e Encounter Details Date Type Department Care Team (Latest Contact Info) Description 10/23/2018 Abstract [facility] CONVERSIONS Dental, Provider, DDS Social [...]
--- OUTSIDE RECORDS SUMMARY | 2025-03-27 19:57 | XMS_ITS | Clinical Summary ---
Author Organization [employer] Address [address] [place] [address] [address] [place] [address] Care Team Providers Care Clean Up Helper Banquet Name Role Phone Unavailable Primary Care Provider [...] Most Recently Relevant to Health Maintenance Insurance [facility]ENTAL-[facility] MEDICAID STAND ADULT
[2025-03-27 20:02] VITALS: BP 204/103; PULSE 82; RESP 18; TEMP 36.4; O2SAT 98
[2025-03-27 21:20] VITALS: BP 186/113; PULSE 77; RESP 18
[2025-03-27 23:18] VITALS: BP 168/82; PULSE 81; RESP 16; TEMP 36.6; O2SAT 97
== END 2025-03-27 23:19 | disposition home or self-care (01) ==
PROVIDERS: Physician Assistant Medical; Emergency Provider Emergency Medicine
DX: K82.8 Other specified diseases of gallbladder (principal)
CPT/HCPCS: 36415; 80053; 83690; 83735; 85025; 96361; 96374; 96375; 99284; J2270; J2405; J2470

== ENCOUNTER 2025-03-29 08:20 | Outpatient (AMB) | payer OTHER, SELFPAY ==
[2025-03-29 08:26] VITALS: BMI 33.3
--- NOTE | 2025-03-29 08:26 | MHC.OFFVIS ---
Vital Signs 03/29/25 08:26 Height 5 ft 4 in Weight 194 lb BMI 33.3 Intake Visit Reasons: gallbladder sludge Intake Note: [place] [facility]bladder sludge. Pt c/o; Onset 2021, RUQ discomfort, reports loss of appetite, reports weight loss, reports no diarrhea at this time but she did have diarrhea a couple months back, she does not have a pcp at this time and needs a refill for her omeprazole. Drapery Operator Required: No Accompanied by: Self / Same As Patient Allergies No Known Allergies (No Known Allergies*) Allergy (Verified 03/29/25 08:38) Medication List - Last Reconciled 03/29/25 by Elvin Leyva MD bupropion HCl XL 150 mg PO QAM dicyclomine 20 mg PO BID escitalopram oxalate 15 mg PO DAILY famotidine (Pepcid) 20 mg PO DAILY 5 days hydroxyzine HCl 25mg-50mg orally 4 times a day PRN; levonorgestrel (Mirena) intrauterine morphine 15 mg PO BID PRN omeprazole 40 mg PO DAILY omeprazole 20 mg PO DAILY ondansetron 4 mg PO Q8H 3 days ondansetron 4 mg PO Q8H ondansetron 4 mg PO Q8H PRN HPI Comments Details: 54-year-old female presenting with abdominal pain and gallbladder concerns. The patient reports severe abdominal pain, primarily in the center and right upper quadrant, exacerbated by spicy foods and associated with nausea. 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 The patient has experienced significant unintentional weight loss from 230 pounds to 193 pounds, raising concerns. The patient denies fever or chills but reports sweating during pain episodes. The patient has a family history of gallbladder disease, with the patient's mother and aunt having had their gallbladders removed. The patient has no prior surgical history except for childbirth and reports no bowel issues. The patient also reports anxiety and depression, though current management details are not specified. [facility] Medical History Overweight Annual physical exam Depression Surgical History No pertinent past surgical history Family History Father No problems noted. Mother No problems noted. Paternal Grandmother Stomach cancer Social History Alcohol intake: never Patient Tobacco Use Status: Never used Tobacco Cigarette Packs Per Day: 0.5 Cigarettes Per Day: 10 Substance Use Type: Marijuana Sexual orientation: Straight/Heterosexual Female Reproductive History Menstrual Age of Menarche: 15 Review of Systems Const All systems reviewed & are unremarkable except as noted in HPI and below Physical Exam Vital Signs: BMI result Body Mass Index 33.3 Const General: cooperative and no acute distress Nutritional Appearance: well nourished Orientation/consciousness: patient oriented x3 Limitations: no limitations HEENT Head: Yes normocephalic and Yes atraumatic Ears: hearing grossly normal bilaterally Resp Effort & Inspection: normal respiratory effort, no audible wheezes, no cough and no respiratory distress Cardio Jugular venous distension: no JVD GI Inspection: Yes normal to inspection Palpation (GI): Soft to palpation, Tenderness to palpation present (GI) in the epigastrum and in the RUQ; Batres's sign negative, no guarding and not rigid Percussion: Yes normal to percussion Auscultation: normal bowel sounds Rectal Exam - Female: deferred Skin Other: Warm, dry, no rash Neuro General: patient oriented x3 Extrem General: Yes no clubbing, cyanosis or edema Assessment & Plan Assessment & Plan (1) Biliary colic: Code(s): K80.50 - Calculus of bile duct without cholangitis or cholecystitis without obstruction Category: Medical Plan 54-year-old female patient with several year history of abdominal pain located in the epigastrium and right upper quadrant found on recent workup in the emergency department to have possible gallstones and biliary sludge. Pain was associated with nausea and vomiting as well as weight loss. On examination the patient does have tenderness in the epigastrium and right upper quadrant with a negative Batres sign. Findings are suggestive of symptomatic cholelithiasis/biliary colic. We discussed the option of laparoscopic or possible open cholecystectomy including the risks and benefits. After discussion of the procedure, risks and alternatives, she consents to a laparoscopic or possible open cholecystectomy. She will be scheduled as a short-stay surgery. Medications: Refilled omeprazole 20 mg PO DAILY 30 caps 0RF Coding Level of Care Code New Pt Level 4 (36031) Diagnoses Biliary colic K80.50
--- OUTSIDE RECORDS SUMMARY | 2025-03-29 08:36 | XMS_ITS | Encounter Summary ---
Author Organization [employer] Address [address] [place] [address] Care Team Providers Care Clay Plant Treater Name Role Phone Unavailable Primary Care Provider Unavailabl e Encounter Details Date Type Department Care Team (Latest Contact Info) Description 10/23/2018 Abstract [facility] CONVERSIONS Dental, Provider, DDS Social History Tobacco [...]
--- OUTSIDE RECORDS SUMMARY | 2025-03-29 08:36 | XMS_ITS | Clinical Summary ---
Author Organization [employer] Address [address] [place] [address] [address] [place] [address] Care Team Providers Care Tankage Grinder Operator Name Role Phone Unavailable Primary [...] Most Recently Relevant to Health Maintenance Insurance [facility] MEDICAID STAND ADULT
== END 2025-03-29 09:05 | disposition home or self-care (01) ==
LOC: HO.HGS 08:20
PROVIDERS: PCP Internal Medicine; Visit Provider Surgery
DX: K80.50 Calculus of bile duct without cholangitis or cholecystitis without obstruction (principal)
CPT/HCPCS: 99204

== ENCOUNTER → 2025-03-29 08:20 | Outpatient (BNVA) | payer OTHER, SELFPAY | PROVIDERS: PCP Internal Medicine; Visit Provider Surgery | DX: K80.50 Calculus of bile duct without cholangitis or cholecystitis without obstruction (principal) | CPT/HCPCS: 99202 ==

== ENCOUNTER 2025-04-06 10:59 | Day surgery (SDC) | payer OTHER, SELFPAY ==
--- NOTE | 2025-04-04 09:45 | HO.ANESPROP2 ---
Documented by User: Paulette Monzon NP 04/04/25 09:46 HPI - Anesthesia Eval Consult details Narrative: 54yo F for Cholecystectomy Laparoscopic,possible open PMFSH Active Problems Active Problems: All Active Problems Biliary colic (Acute) COVID (Acute) Right knee pain (Acute) Surveillance for control, intrauterine device (Acute) Overweight (Acute) Annual physical exam (Acute) GERD (gastroesophageal reflux disease) (Acute) Knee pain (Acute) Past Medical History Medical History Overweight Annual physical exam Depression Family History Family History Father No problems noted. Mother No problems noted. Paternal Grandmother Stomach cancer Surgical History Surgical History No pertinent past surgical history Social History Social History Alcohol intake: never Comment: correct count Patient Tobacco Use Status: Current everyday Tobacco user Tobacco use type: Cigarette Cigarette Packs Per Day: 0.5 Cigarettes Per Day: 10 Use of substances other than those prescribed or required for medical reasons: Yes Substance Use Type: Marijuana Substance Use Frequency: Daily Advance Directives: No Advance Directives Information Provided: Yes Sexual orientation: Straight/Heterosexual Meds Allergies Allergy/AdvReac Type Severity Reaction Status Date / Time No Known Allergies (No Known Allergy Verified 03/29/25 08:38 Allergies*) Home Medications ?Medication ?Instructions ?Recorded ?Confirmed ?Last Taken ?Type bupropion HCl 150 mg 24 hr tablet, 150 mg PO QAM 03/29/25 04/06/25 Unknown History extended release escitalopram oxalate 10 mg tablet 15 mg PO DAILY 03/29/25 04/06/25 Unknown History Exam Pertinent Lab Results Pertinent Lab Results: Laboratory Tests 03/27/25 17:13 WBC 7.6 Hgb 15.6 Hct 44.9 Plt Count 395 Sodium 140 Potassium 3.6 Chloride 98 Carbon Dioxide 31 H BUN 6 L Creatinine 0.87 Narrative Narrative: EKG 02/2025 Vent. Rate : 74 BPM Atrial Rate : 74 BPM P-R Int : 154 ms QRS Dur : 88 ms QT Int : 394 ms P-R-T Axes : 32 2 28 degrees QTcB Int : 437 ms Normal sinus rhythm Minimal voltage criteria for LVH, may be normal variant ( R in aVL ) Borderline ECG When compared with ECG of 24-Feb-2018 14:33, No significant change was found Airway Adult Head Mouth w/Numbe Teeth:  1. Chipped Assessment and Plan Assessment Anesthesia Assessment: Chart Reviewed Documented by User: Adalberto Morris MD 04/06/25 13:14 [facility] Past Medical History Medical History Overweight Annual physical exam Depression Family History Family History Father No problems noted. Mother No problems noted. Paternal Grandmother Stomach cancer Family history of problems with anesthesia: No Surgical History Surgical History No pertinent past surgical history History of Problems with Anesthesia: Unobtainable Social History Social History Alcohol intake: never Comment: correct count Patient Tobacco Use Status: Current everyday Tobacco user Tobacco use type: Cigarette Cigarette Packs Per Day: 0.5 Cigarettes Per Day: 10 Use of substances other than those prescribed or required for medical reasons: Yes Substance Use Type: Marijuana Substance Use Frequency: Daily Advance Directives: No Advance Directives Information Provided: Yes Sexual orientation: Straight/Heterosexual Meds Allergies Allergy/AdvReac Type Severity Reaction Status Date / Time No Known Allergies (No Known Allergy Verified 03/29/25 08:38 Allergies*) Home Medications ?Medication ?Instructions ?Recorded ?Confirmed ?Last Taken ?Type bupropion HCl 150 mg 24 hr tablet, 150 mg PO QAM 03/29/25 04/06/25 Unknown History extended release escitalopram oxalate 10 mg tablet 15 mg PO DAILY 03/29/25 04/06/25 Unknown History Exam Exam Date and Time: 04/06/25 Airway Mallampati Class: II TM Dist: >3cm Neck ROM: Full Adult Head Mouth w/Numbe Teeth:  1. Chipped Loose/Missing/Broken Teeth: Yes Heart: rrr Lungs: ctab vesicular Assessment and Plan Assessment Anesthesia Assessment: Anesthesia Plan Discussed Final Anesthetic Review Family History of Problems with Anesthesia: No History of Problems with Anesthesia: Unobtainable NPO: Yes ASA Class: III Final Preanesthetic Review: No Changes in Pt Med Stat, Meds/Allgs Chart Reviewed, Consent Obtained/Reviewed and Anes Risks/Benef Reviewed Patient Risk: Intermediate Procedure Risk: Low Anesthetic Plan Anesthetic Plan: GA Disposition: Standard PACU
[2025-04-06] VITALS (11 sets, daily range): BP systolic 128–190; BP diastolic 64–96; PULSE 59–71; RESP 10–16; TEMP 36.2–36.6; O2SAT 96–99; BMI 36.6
[2025-04-06] MEDS: Lactated Ringers 1,000 ML 100 ML IVCONT (12:07)
--- NOTE | 2025-04-06 12:17 | MHC.SHP ---
Pre-Procedural Eval Section A - 24 Hr Update-Section A only Date of Service: 04/06/25 The patient is an INPATIENT: No Changes since office visit: Yes Patient answered all questions; No Cold of Flu in the past 2 weeks, No New Medical Problems and No Changes in Medication The patient has been examined within 24 hours of the surgical procedure. The History & Physical has been completed within 30 days and I have reviewed it.: Yes Section B - Complete if H&P > 30 days Chief Complaint: Calculus of bile duct without cholangitis Allergies: Allergies Allergy/AdvReac Type Severity Reaction Status Date / Time No Known Allergies (No Known Allergy Verified 03/29/25 08:38 Allergies*) Plan Diagnosis/Plan: Unchanged I have reviewed the history and physical and performed a pertinent physical examination on my patient. No changes have occurred unless specified. Time Spent With Patient Time: Total time managing care of this patient today ____ minutes.
--- NOTE | 2025-04-06 13:52 | W.PM.OPN ---
Operative Note Operative Note Date of Service: 04/06/25 Narrative: Preoperative diagnosis: Biliary colic, cholelithiasis Postoperative diagnosis: Same Procedure: Laparoscopic cholecystectomy Surgeon: Elvin Leyva MD Field Health Officer: Dileep Diaz PA-C, Mela Gr, MS-3 Anesthesia: General endotracheal Indications for procedure: 54-year-old female patient presenting with complaints of abdominal pain in the epigastrium and right upper quadrant found to be tender in the right upper quadrant with a positive Batres sign. Workup revealed gallstones within the gallbladder. Patient presents today for elective laparoscopic or possible open cholecystectomy. Operative findings: Dense adhesions to the gallbladder wall involving the stomach and duodenum. Specimen: gallbladder Estimated blood loss: 3 mL Complications: None Procedure details: Patient was brought to the OR and placed in a supine position. After administering general anesthesia the patient's abdomen was prepped with ChloraPrep and draped in a sterile fashion. A surgical time-out was called the consent confirmed. Patient received preoperative antibiotics and Venodyne boots were in place. Local anesthesia consisting of 0.5% Sensorcaine without epinephrine was infiltrated in a periumbilical region. A 5 mm incision was made above the umbilicus in a transverse fashion. The Veress needle was then inserted while elevating abdominal cavity with towel clips. After positive drop test the abdomen was insufflated to a pressure of 15 mm of mercury. The Veress needle was then removed and a 5 mm trocar inserted. The camera was inserted in the abdomen explored. A 12 mm trocar was then placed in the epigastrium. Two 5 mm trocars placed in the right upper quadrant by the ice cream freezer assistant. The patient was placed in reverse Trendelenburg positioning and rotated to the left. The gallbladder was grasped with the fundus and retracted cephalad by the ice cream freezer assistant. The infundibulum was then grasped and retracted away from the liver bed, also by the ice cream freezer assistant. The Dolphin dissected was then used by the surgeon to dissect the peritoneum off the infundibulum to reveal the junction with the cystic duct. Cystic artery was noted slightly medial and posterior to the cystic duct. After obtaining a critical view the cystic duct was doubly clipped and divided. The cystic artery was then doubly clipped and divided. The gallbladder was then dissected off the liver bed using electrocautery with an L hook. Hemostasis was assured all times using the electrocautery. When the gallbladder is completely dissected off the liver bed was placed in an Endo-Catch bag and brought out through the epigastric incision. The gallbladder was sent to pathology for further examination. The abdomen was then re-examined. The liver bed was irrigated and suctioned dry. No bleeding or bile leak could be identified. CO2 was then evacuated and all trocars removed. Fascia was closed at the epigastric incision using a [id number] 0 Polysorb suture. Skin was closed in all incisions using a subcuticular 4 0 Polysorb suture by both the surgeon and ice cream freezer assistant. Sterile dressings consisting of Steri-Strips, 2 x 2 gauze, and Tegaderm were then applied. The patient tolerated the procedure well. Sponge instrument and needle counts reported as correct. The patient was transferred to PACU in stable condition.
== END 2025-04-06 16:58 | disposition home or self-care (01) ==
PROVIDERS: Visit Provider Surgery
PROC: 0FT44ZZ Resection of Gallbladder, Percutaneous Endoscopic Approach (ICD-10-PCS; CPT 47562; principal; 2025-04-06 13:30)
DX: K81.1 Chronic cholecystitis (principal); K82.8 Other specified diseases of gallbladder; R11.0 Nausea; R59.0 Localized enlarged lymph nodes; R63.4 Abnormal weight loss; Z68.33 Body mass index [BMI] 33.0-33.9, adult; Z79.899 Other long term (current) drug therapy
CPT/HCPCS: 47562; 88304; J0131; J0360; J0525; J1100; J1171; J1630; J1920; J2003; J2250; J2405; J2704; J3010

== ENCOUNTER → 2025-04-06 10:59 | Outpatient (BNV) | payer OTHER, SELFPAY | PROVIDERS: Visit Provider Surgery | DX: K80.50 Calculus of bile duct without cholangitis or cholecystitis without obstruction (principal) | CPT/HCPCS: 47562 ==

== ENCOUNTER 2025-04-14 10:23 | Outpatient (AMB) | payer OTHER, SELFPAY ==
--- NOTE | 2025-04-14 10:34 | MHC.OFFVIS ---
Vital Signs 04/14/25 10:45 Height 5 ft 4 in Weight 196 lb 3.382 oz BMI 33.7 Respiration 16 Intake Visit Reasons: s/p Lap Denise poss open Intake Note: Patient is seen in office for post op assessment post Laparoscopic cholecystectomy. Pt c/o: admits to sore and tender surgery:04/06/25 (BILL) [place] Planning Manager Required: No Accompanied by: Self / Same As Patient Allergies No Known Allergies (No Known Allergies*) Allergy (Verified 04/14/25 10:46) HPI HPI s/p Lap Denise poss open: Details: 54 year old female here for follow up after laparoscopic cholecystectomy on 04/06/[address] Leyva for biliary colic. She reports feeling overall better since the surgery with resolution of her previous RUQ pain. She took oxycodone for incisional pain for the first week but did not need anything after that. She had diminished oral intake for several days following due to lack of appetite but this is slowly improving and she is tolerating a solid diet without nausea or vomiting. She is moving her bowels normally. She has no concerns. [facility] Medical History Overweight Annual physical exam Depression Surgical History No pertinent past surgical history Family History Father No problems noted. Mother No problems noted. Paternal Grandmother Stomach cancer Social History Alcohol intake: never Comment: correct count Patient Tobacco Use Status: Current everyday Tobacco user Tobacco use type: Cigarette Cigarette Packs Per Day: 0.5 Cigarettes Per Day: 10 Substance Use Type: Marijuana Sexual orientation: Straight/Heterosexual Female Reproductive History Menstrual Age of Menarche: 15 Review of Systems Const Denies chills and Denies fever(s) ENT Denies dizziness Card Denies chest pain and Denies dyspnea Resp Denies dyspnea GI Reports as per HPI Skin/Breast Denies erythema, Denies rash and Denies jaundice Neuro Denies dizziness Physical Exam Vital Signs: Last Vital Signs Resp 16 04/14/25 10:45 BMI result Body Mass Index 33.7 Const General: comfortable, no acute distress and alert Orientation/consciousness: patient oriented x3 Resp Effort & Inspection: normal respiratory effort and able to speak in complete sentences GI Other: small amount of scabbing of all port incisions, mild induration of epigastric port site, no surrounding erythema or edema abd soft, nontender Palpation (GI): no guarding and not rigid Percussion: Yes normal to percussion Skin General skin exam: no rashes or lesions noted and no jaundice Neuro General: patient oriented x3 and moves all extremities Results Reviewed Results Reviewed: Gallbladder, cholecystectomy: Chronic cholecystitis; one reactive appearing lymph node Assessment & Plan Assessment & Plan (1) S/P laparoscopic cholecystectomy: Code(s): Z90.49 - Acquired absence of other specified parts of digestive tract Category: Surgical Plan 54 year old female s/p laparoscopic cholecystectomy on 04/06/[address] Leyva. She tolerated the procedure well and is doing well post operatively. Abdomen is benign with clean incisions without evidence of infection. She was instructed on continued heavy lifting and strenuous activity restrictions for another 2 weeks. She can follow up as needed if she develops concerns. Coding Level of Care Code Global (71497) Diagnoses S/P laparoscopic cholecystectomy Z90.49
[2025-04-14 10:45] VITALS: RESP 16; BMI 33.7
== END 2025-04-14 11:09 | disposition home or self-care (01) ==
LOC: HO.HGS 10:24
PROVIDERS: PCP Nurse Practitioner Family; Visit Provider Physician Assistant Surgical
DX: Z90.49 Acquired absence of other specified parts of digestive tract (principal)
CPT/HCPCS: 99024

== ENCOUNTER → 2025-04-14 10:23 | Outpatient (BNVA) | payer OTHER, SELFPAY | PROVIDERS: PCP Nurse Practitioner Family; Visit Provider Physician Assistant Surgical | DX: Z48.815 Encounter for surgical aftercare following surgery on the digestive system (principal); Z90.49 Acquired absence of other specified parts of digestive tract | CPT/HCPCS: 99212 ==